=== PATIENT | male | born 1965 | race Two or more races ===

== ENCOUNTER 2021-05-12 07:18 | Outpatient (CLI) | payer OTHER | END 2021-05-12 23:59 | disposition home or self-care (01) | LOC: LAB 07:18 | PROVIDERS: ATTEND Internal Medicine | DX: Z01.812 Encounter for preprocedural laboratory examination (principal); Z20.822 Contact with and (suspected) exposure to COVID-19; M75.42 Impingement syndrome of left shoulder ==

== ENCOUNTER 2021-05-13 10:02 | Outpatient (CLI) | payer OTHER ==
[2021-05-13 10:46] LABS: BASOPHILS # (AUTO) 0.1 K/uL (0.0-8.0); BASOPHILS % (AUTO) 0.6 % (0.0-2.0); EOSINOPHILS # (AUTO) 0.2 K/uL (0.0-0.7); EOSINOPHILS % (AUTO) 2.5 % (0.0-7.0); HEMATOCRIT 51.5 % (36.7-47.1); LYMPHOCYTES % (AUTO) 22.2 % (20.5-51.5); MEAN CORPUSCULAR HEMOGLOBIN 32.6 uug (23.8-33.4); MEAN CORPUSCULAR HGB CONC 35 g/dL (32.5-36.3); MEAN CORPUSCULAR VOLUME 93.4 fL (73.0-96.2); MONOCYTES # (AUTO) 0.6 K/uL (2.0-10.0); MONOCYTES % (AUTO) 6.3 % (0.0-11.0); NEUTROPHILS # (AUTO) 6.2 K/uL (1.8-8.9); NEUTROPHILS % (AUTO) 68.4 % (38.5-71.5); PLATELET COUNT (AUTO) 232 K/uL (152-348); RED BLOOD CELL COUNT(AUTO) 5.52 MIL/uL (4.06-5.63)
[2021-05-13 10:59] LABS: BILIRUBIN,TOTAL 0.5 mg/dL (0.2-1.0); POTASSIUM 4.4 mmol/L (3.5-5.1); TOTAL PROTEIN, SERUM 7.7 g/dL (6.4-8.2)
[2021-05-13 13:09] LABS: *BILIRUBIN,URIN NEGATIVE (NEGATIVE); *BLOOD, URINE NEGATIVE (NEGATIVE); *CLARITY,URINE CLEAR (CLEAR); *COLOR,URINE YELLOW (YELLOW); *KETONES,URINE TRACE (NEGATIVE); *UROBILINOGEN,URINE 0.2 E.U./dl (NORMAL); LEUKOCYTE ESTERASE ,URINE NEGATIVE (NEGATIVE); NITRITE, URINE NEGATIVE (NEGATIVE); UGLUCOSE 2+ (NEGATIVE)
== END 2021-05-13 23:59 | disposition home or self-care (01) ==
LOC: LAB 10:02
PROVIDERS: ATTEND Internal Medicine
DX: Z01.818 Encounter for other preprocedural examination (principal)
CPT/HCPCS: 36415; 71045; 85025; 85730; 93005

== ENCOUNTER 2021-05-15 06:55 | Day surgery (SDC) | payer OTHER ==
[2021-05-15] MEDS ORDERED: NEOSTIGMINE METHYLSULFATE 10 MG/10 ML VIAL IM ONE (06:56)
[2021-05-15] MEDS ORDERED: ONDANSETRON 4 MG/2 ML VIAL IV ONE (06:56)
[2021-05-15] MEDS ORDERED: DEXAMETHASONE SOD PHOSPHATE 4 MG INJ IV ONE (06:56)
[2021-05-15] MEDS ORDERED: CEFAZOLIN 1 G VIAL MC ONE (06:56)
[2021-05-15] MEDS ORDERED: GLYCOPYRROLATE 0.2 MG/ML VIAL MC ONE (06:56)
[2021-05-15] MEDS ORDERED: SEVOFLURANE 250 ML BOTTLE IH ONE (06:56)
[2021-05-15] MEDS ORDERED: LIDOCAINE-MPF 2% 5 ML VIAL MC ONE (06:56)
[2021-05-15] MEDS ORDERED: PROPOFOL 200 MG/20 ML BOTTLE IV ONE (06:56)
[2021-05-15] MEDS ORDERED: KETOROLAC TROMETHAMINE 30 MG INJ IM ONE (06:56)
[2021-05-15] MEDS ORDERED: POLYMYXIN B SULFATE 500,000 UNITS, BACITRACIN 50,000 UNITS, NORMAL SALINE 20 ML MC ONE (07:15)
[2021-05-15] MEDS ORDERED: BUPIVACAINE/EPI PF 0.5% 10 ML VIAL ONE (07:54)
[2021-05-15] MEDS ORDERED: BACITRACIN/POLYMYXIN B OINT 15 GM TUBE ONE (07:55)
[2021-05-15] MEDS ORDERED: HYDROMORPHONE 2 MG/1 ML DISP.SYRIN ONE (08:00)
[2021-05-15] MEDS ORDERED: MIDAZOLAM HCL 2 MG/2 ML VIAL ONE (08:00)
[2021-05-15] MEDS ORDERED: ROCURONIUM BROMIDE 50 MG/5 ML VIAL ONE ×2 (08:00→09:18)
[2021-05-15] MEDS ORDERED: FENTANYL CITRATE 100 MCG/2 ML AMPUL ONE (10:25)
== END 2021-05-15 13:00 | disposition home or self-care (01) ==
LOC: DS 06:55
PROVIDERS: ATTEND Orthopaedic Surgery
DX: M75.42 Impingement syndrome of left shoulder (principal); M75.102 Unspecified rotator cuff tear or rupture of left shoulder, not specified as traumatic; I10 Essential (primary) hypertension; E11.9 Type 2 diabetes mellitus without complications; Z79.899 Other long term (current) drug therapy; Z79.84 Long term (current) use of oral hypoglycemic drugs; Z98.890 Other specified postprocedural states
CPT/HCPCS: 23120; 23420; 82962; C1713; J0690; J1100; J1170; J1885; J2405; J3010; J3490 ×7; A4565; A4649; J2250; J7030